=== PATIENT | male | born 1965 | race Caucasian/White ===

== ENCOUNTER → 2017-08-02 | Outpatient (CLI) | payer OTHER ==
--- NOTE | 2017-08-02 13:50 | RAD ---
Indication: Upper back pain and lump for one week. Time of exam 1337 hours. Curvature and alignment is normal. The vertebral body heights are well-maintained. No acute compression fracture is detected. Generalized degenerative disc disease is seen. The pedicles and paraspinous line are intact. Impression: Thoracic spondylosis. No acute bony abnormality is detected.
--- NOTE | 2017-08-02 14:31 | RAD ---
Indication: Lump in the posterior thorax. Sonographic interrogation of the area of palpable abnormality was performed. There is an area of hypoechogenicity in the subcutaneous tissues measuring at least 5.8 x 6.1 x 1.2 cm. No definite internal vascularity is seen. This may represent a large lipoma. No fluid collections are seen. Impression: Hypoechoic mass at the area of palpable abnormality in the posterior thorax. This may represent a large lipoma. Close clinical follow-up is recommended to confirm stability. Consideration could be given to performance of an MRI or CT for better characterization, if clinically indicated.
== END | disposition home or self-care (01) ==
LOC: DXRAD 13:23
PROVIDERS: ATTEND Family Medicine
DX: R22.2 Localized swelling, mass and lump, trunk (principal); M47.894 Other spondylosis, thoracic region
CPT/HCPCS: 72072; 76536

== ENCOUNTER 2018-01-21 16:02 | Emergency (ER) | payer OTHER ==
[2018-01-21] MEDS ORDERED: IV NORMAL SALINE 1,000ML 1,000 ML IV SCH (16:09)
[2018-01-21 16:10] VITALS: BP 174/119
--- NOTE | 2018-01-21 16:25 | PHYS DOC ---
Adult General HPI HPI 52-year-old male presents with a general ill feeling and possibly chest pain. The patient states that he just started feeling "terrible" yesterday on his way to work. He describes this as feeling jittery and having palpitations. He went home and slept for many hours, more than usual. He woke up this afternoon, he was not feeling any better. He had some chest tightness with radiation to his left arm. That seems to have resolved at this time. He still feels his palpitations. He denies fever or chills. He has had a dry cough for 3 days. He has no cardiac history. He is a smoker. He drank 10 cans of beer a days ago. He also smoked marijuana 3 days ago. He denies any other drug use at this time. He states being scared and worried. He is tearful in the room. Review of Systems Review of Systems Constitutional: Denies fever or chills [] Eyes: Denies change in visual acuity, redness, or eye pain [] HENT: Denies nasal congestion or sore throat [] Respiratory: Dry cough [] Cardiovascular: No additional information not addressed in HPI [] GI: Denies abdominal pain, nausea, vomiting, bloody stools or diarrhea [] : Denies dysuria or hematuria [] Musculoskeletal: Denies back pain or joint pain [] Integument: Denies rash or skin lesions [] Neurologic: Denies headache, focal weakness or sensory changes [] Endocrine: Denies polyuria or polydipsia [] All other systems were reviewed and found to be within normal limits, except as documented in this note. Current Medications Current Medications Current Medications Medications (Trade) Dose Ordered Sig/Morro Start Time Stop Time Status Last Admin Dose Admin Sodium Chloride 1,000 ml @ 1,000 mls/hr Q1H 01/21/18 16:09 01/21/18 17:08 UNV Physical Exam Physical Exam Constitutional: Well developed, well nourished, no acute distress, non-toxic appearance. [] HENT: Normocephalic, atraumatic, bilateral external ears normal, oropharynx moist, no oral exudates, nose normal. [] Eyes: PERRLA, EOMI, conjunctiva normal, no discharge. [] Neck: Normal range of motion, no tenderness, supple, no stridor. [] Cardiovascular:Heart rate regular rhythm, no murmur [] Lungs & Thorax: Bilateral breath sounds clear to auscultation [] Abdomen: Bowel sounds normal, soft, no tenderness, no masses, no pulsatile masses. [] Skin: Scar in his upper back from cyst removal. Well-healed. [] Back: No tenderness, no CVA tenderness. [] Extremities: No tenderness, no cyanosis, no clubbing, ROM intact, no edema. [] Neurologic: Alert and oriented X 3, normal motor function, normal sensory function, no focal deficits noted. [] Psychologic: Affect normal, judgement normal, mood normal. [] EKG EKG Normal sinus rhythm, rate 84, normal axis, no ST elevations or depressions[] Radiology/Procedures Radiology/Procedures PORTABLE CHEST 1V dated 01/21/2018 4:13 PM. Comparison: None. Clinical Indication: palpitation with short of breath today, pt shielded. Findings: Single upright portable exam performed. Heart and mediastinal contours are within normal limits. Lungs are clear without focal consolidation. Vascular interstitium within normal limits. No pleural effusion or pneumothorax. Impression: No acute radiographic abnormality. Electronically signed by: Sushil Bejarano MD (01/21/2018 4:31 PM) [facility] [place][] Course & Med Decision Making Course & Med Decision Making Pertinent Labs and Imaging studies reviewed. (See chart for details) The patient's chest x-ray is unremarkable. His labs are unremarkable. His troponin is negative. His urinalysis does not show signs of infection. I believe the patient is having some anxiety reaction which is complicating his symptoms. He seems very concerned that there is something wrong. The rest of the patient's workup is unremarkable. His UDS did show marijuana which is further complicating his emotional state. [] Dragon Disclaimer Dragon Disclaimer This electronic medical record was generated, in whole or in part, using a voice recognition dictation system. Departure Departure: Referrals: ATIYA GUARDADO MD (PCP) BOOM AUSTIN DO January 21, 2018 16:25
[2018-01-21 16:32] LABS: BASO # 0.1 x10^3/uL (0.0-0.2); BASO % 1 % (0-3); EOS # 0.1 x10^3/uL (0.0-0.7); EOS % 2 % (0-3); HEMATOCRIT 47.6 % (39.0-53.0); HEMOGLOBIN 16.3 g/dL (13.0-17.5); LYMPH # 2.2 x10^3/uL (1.0-4.8); LYMPH % 29 % (24-48); MEAN CORPUSCULAR HEMOGLOBIN 32 pg (25-35); MEAN CORPUSCULAR HGB CONC 34 g/dL (31-37); MEAN CORPUSCULAR VOLUME 92 fL (79-100); MONO # 0.4 x10^3/uL (0.0-1.1); MONO % 5 % (0-9); NEUT # 4.7 x10^3uL (1.8-7.7); NEUT % 63 % (31-73); PLATELET COUNT 165 x10^3/uL (140-400); RED BLOOD COUNT 5.18 x10^6/uL (4.30-5.70); RED CELL DISTRIBUTION WIDTH 14.1 % (11.5-14.5); WHITE BLOOD COUNT 7.5 x10^3/uL (4.0-11.0)
--- NOTE | 2018-01-21 16:34 | RAD ---
PORTABLE CHEST 1V dated 01/21/2018 4:13 PM. Comparison: None. Clinical Indication: palpitation with short of breath today, pt shielded. Findings: Single upright portable exam performed. Heart and mediastinal contours are within normal limits. Lungs are clear without focal consolidation. Vascular interstitium within normal limits. No pleural effusion or pneumothorax. Impression: No acute radiographic abnormality. Electronically signed by: Sushil Bejarano MD (01/21/2018 4:31 PM) [facility] [place]
[2018-01-21 16:47] LABS: ALBUMIN 3.8 g/dL (3.4-5.0); ALBUMIN/GLOBULIN RATIO 1.1 (1.0-1.7); CALCIUM 8.7 mg/dL (8.5-10.1); GFR 79.1; POTASSIUM 4.3 mmol/L (3.5-5.1); TOTAL BILIRUBIN 0.4 mg/dL (0.2-1.0); TOTAL PROTEIN 7.4 g/dL (6.4-8.2)
--- NOTE | 2018-01-21 18:00 | EKG ---
[address] [address] Test Date: 2018-01-21 Test Time: 16:09:10 Pat Name: MICHELLE CONTI Department: Room: Gender: M Merchandiser Retail Representative: TERESA : 1965 Requested By: BOOM AUSTIN Order Number: [id number] Reading MD: Measurements Intervals [place] Rate: 84 P: 66 NE: 138 QRS: 46 QRSD: 98 T: 99 QT: 362 QTc: 431 Interpretive Statements SINUS RHYTHM LEFT ATRIAL ABNORMALITY QRS(T) CONTOUR ABNORMALITY CONSIDER ANTEROLATERAL MYOCARDIAL DAMAGE ABNORMAL ECG RI6.01 No previous ECG available for comparison
[2018-01-21 18:08] LABS: BACTERIA,URINE 0 /HPF (0-FEW); BILIRUBIN,URINE NEG (NEG); CLARITY,URINE CLEAR; COLOR,URINE YELLOW; GLUCOSE,URINE NEG (NEG); NITRITE,URINE NEG (NEG); RBC,URINE 0 /HPF (0-2); UROBILINOGEN,URINE 0.2 mg/dL (0.2 mg/dL); WBC,URINE OCC /HPF (0-4)
[2018-01-21 18:09] LABS: BARBITURATES NEG (NEG); BENZODIAZEPINES NEG (NEG); CANNABINOIDS POS (NEG); COCAINE NEG (NEG); METHADONE NEG (NEG); OPIATES NEG (NEG); PHENCYCLIDINE NEG (NEG)
[2018-01-21 18:21] LABS: AMPHETAMINE/METHAMPHETAMINE NEG (NEG)
== END 2018-01-21 18:46 | disposition home or self-care (01) ==
LOC: ER 16:02
DX: F41.9 Anxiety disorder, unspecified (principal); F12.90 Cannabis use, unspecified, uncomplicated
CPT/HCPCS: 36415; 71045; 80053; 80307; 81001; 84484; 85025; 93005; 99285-25; G0479; J7030

== ENCOUNTER 2020-05-03 08:43 | Observation (INO) | payer OTHER ==
[~2020-05-03] VITALS: Ht 170.2 cm; Wt 84.3 kg
--- NOTE | 2020-05-03 08:51 | PHYS DOC ---
Past History Past Medical History: Hypertension Past Surgical History: Other Alcohol Use: Occasionally Drug Use: Marijuana General Adult HPI: HPI: 54 yo M PMH HTN (noncompliant with blood pressure medications for the past year due to adverse effects) and tobacco dependence, presents the ED with complaints of throbbing midsternal chest pain that radiates from the right side of his chest to his back for the past week. 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 Patient also complains of left lower anterior rib pain after patient fell forward yesterday while slipping outside mowing his lawn (no head injury or LOC). States his pain is worsened with deep respirations. Denies any history of cocaine or drug use. Sister had heart attack at the age of 55. No known family history of DVT, PE, sudden under the age of 50, aortic disease or arrhythmias. Patient with no prior cardiac work-up or disease. Patient was referred by PCP office Dr. Hooks who gave patient aspirin and 1 sublingual nitro. Patient reports nitro relieved his symptoms but did not resolve the chest pain. States he was unable to go to work yesterday due to his lower anterior rib pain and is needing a work note. PSH inguinal hernia [place] approximately 40 years ago. No recent hospitalizations, trauma or surgeries. Takes no daily medications. No known drug allergies. No recent upper resp iratory infection. ROS: Denies associated fever, chills, cough, sore throat, dyspnea, hemoptysis, leg swelling, nausea, vomiting, diarrhea, abdominal pain, diaphoresis, headache, neck stiffness, sensory or motor deficits. Review of Systems: Review of Systems: Constitutional: Denies fever or chills Eyes: Denies change in visual acuity HENT: Denies nasal congestion or sore throat Respiratory: Denies cough or shortness of breath Cardiovascular: Denies edema GI: Denies abdominal pain, nausea, vomiting, bloody stools or diarrhea : Denies dysuria Musculoskeletal: Denies joint pain Integument: Denies rash Neurologic: Denies headache, focal weakness or sensory changes Endocrine: Denies polyuria or polydipsia Lymphatic: Denies swollen glands Psychiatric: Denies depression or anxiety Heart Score: HEART Score for Chest Pain: HEART Score for Chest Pain Response (Comments) Value History Moderately Suspicious 1 ECG Nonspecific Repolarizatio 1 Age >45 - < 65 1 Risk Factors >3 Risk Factors or Hx CAD 2 Troponin < Normal Limit 0 Total 5 Risk Factors: Risk Factors: DM, Current or recent (<one month) smoker, HTN, HLP, family history of CAD, obesity. Risk Scores: Score 0 - 3: 2.5% MACE over next 6 weeks - Discharge Home Score 4 - 6: 20.3% MACE over next 6 weeks - Admit for Clinical Observation Score 7 - 10: 72.7% MACE over next 6 weeks - Early Invasive Strategies Allergies: Allergies: Allergies Coded Allergies Type Severity Reaction Last Updated Verified No Known Drug Allergies 01/21/18 No Physical Exam: PE: Constitutional: Well developed, well nourished, no acute distress, non-toxic appearance, hypertensive HENT: Normocephalic, atraumatic, bilateral external ears normal, oropharynx moist, no oral exudates, nose normal. [] Eyes: PERRLA, EOMI, conjunctiva normal, no discharge. [] Neck: Normal range of motion, no tenderness, supple, no stridor. [] Cardiovascular:Heart rate regular rhythm, no murmur, left lower thoracic ribs 7- 10 anterior w/ttp, no bruising Lungs & Thorax: Bilateral breath sounds clear to auscultation [] Abdomen: Bowel sounds normal, soft, no tenderness (no epigastric, RUQ/LUQ), no masses, no pulsatile masses. [] Skin: Warm, dry, no erythema, no rash. [] Back: No tenderness, no CVA tenderness. [] Extremities: No tenderness, no cyanosis, no clubbing, ROM intact, no edema. [] Neurologic: Alert and oriented X 3, normal motor function, normal sensory function, no focal deficits noted. [] Psychologic: Affect normal, judgement normal, mood normal. [] EKG: EKG: [] Sinus rhythm at 62 bpm, no axis deviation, normal intervals, T wave inversion 1, aVL, V5 and V6, nonpathologic Q waves in lead III, no ST elevations or ST depressions T wave inversions present in 01/2018 ekg, much more pronounced TWIs on ed ekg and Dr. Sánchez' ekg, 2018 ekg w/III and aVF q waves Radiology/Procedures: Radiology/Procedures: [] IMAGING REPORT Signed PATIENT: MICHELLE CONTI ACCOUNT: [id number] : 1965 LOCATION: ER AGE: 54 SEX: M EXAM STATUS: REG ER ORD. PHYSICIAN: RAY FAJARDO DO REASON: none PROCEDURE: PORTABLE CHEST 1V PORTABLE CHEST 1V 05/03/2020 8:47 AM INDICATION: Chest pain COMPARISON: None available TECHNIQUE: Portable frontal view of the chest is provided. FINDINGS: The cardiomediastinal silhouette is within normal limits. Lungs are clear. There are no significant pleural effusions. There is no pulmonary vascular congestion. No pneumothorax. No suspicious osseous abnormality. IMPRESSION: There is no acute cardiopulmonary process. Electronically signed by: Goldy Kincaid MD (05/03/2020 9:07 AM) [facility] DICTATED AND SIGNED BY: GOLDY KINCAID MD DATE: 05/03/20906 CC: ATIYA GUARDADO MD; RAY FAJARDO DO ~ IMAGING REPORT Signed PATIENT: MICHELLE CONTI ACCOUNT: [id number] : 1965 LOCATION: ER AGE: 54 SEX: M EXAM STATUS: REG ER ORD. PHYSICIAN: RAY FAJARDO DO REASON: chest pain to back, left lower rib pain, r/o dissection PROCEDURE: CT ANGIOGRAPHY CHEST CT ANGIOGRAPHY CHEST History: Chest pain radiating to back. Left lower rib pain. Technique: CT of the chest was performed with intravenous contrast. PE protocol. Maximum intensity projection coronal and sagittal reconstructions were performed. Exposure: One or more of the following individualized dose reduction techniques were utilized for this examination: 1. Automated exposure control 2. Adjustment of the mA and/or kV according to patient size 3. Use of iterative reconstruction technique. Comparison: None Findings: Chest: No pulmonary embolism. No aortic aneurysm. Poor contrast timing is noted within the aorta. No definite evidence of dissection. Mild atheromatous plaque within the aortic arch. No pathologic lymphadenopathy. No consolidation or pleural effusion. No pneumothorax. Linear lingular atelectasis. 3 mm right middle lobe pulmonary nodule (series 4 image 73). 7 mm right lower lobe nodule along the fissure (image 74). Upper abdomen: The imaged upper abdomen is unremarkable. Bones: No pathologic osseous lesions. Impression: 1. No definite acute thoracic pathology. Poor contrast timing within the aorta degrades evaluation. No definite aortic dissection. 2. Right-sided pulmonary nodules. Recommend comparison with prior imaging studies. If prior imaging studies are not available, recommend 6-12 month follow-up. Electronically signed by: Sujit Guzman DO (05/03/2020 9:49 AM) [facility] DICTATED AND SIGNED BY: SUJIT GUZMAN DO DATE: 05/03/20 0949 CC: ATIYA GUARDADO MD; RAY FAJARDO DO ~ Impressions: Course & Med Decision Making: Course & Med Decision Making Pertinent Labs and Imaging studies reviewed. (See chart for details) Concern for symptomatic hypertension with chest pain (x 6 days) and lateral ischemia on ekg, alson seen on 2018 ekg. Pt also c/o left anterior rib pain.CBC, cmp wnl, normal troponin, ck. D-dimer 0.48. Chest x-ray with no acute car diopulmonary process. CTA chest with poor bolus timing, no pe, no definite aortic dissection, no aortic aneurysm, no osseous lesions. Pts' pain improved with nitro. Will admit for serial trops and cards consultation. Dr. Hooks accepts admission. BP at time of admission 151/92. Pt stable and agrees with plan. I have spoken with the patient and/or caregivers. I have explained the patient's condition, diagnosis and treatment plan based on the information available to me at this time. I have answered the patient's and/or caregivers questions and answered any concerns. The patient and/or caregivers have as good an understanding of the patient's diagnosis, condition and treatment plan as can be expected at this point. The patient has been stabilized within the capability of the emergency department. The patient will be transported for further care and management or will be moved to an observation or inpatient service. I have communicated with the staff or medical practitioner taking over this patient's care. [place] Disclaimer: Nelsy Disclaimer: This electronic medical record was generated, in whole or in part, using a voice recognition dictation system. Departure Departure: Impression: Primary Impression: HTN, goal: symptom mgmt only Additional Impressions: Chest pain T wave inversion in electrocardiogram Rib pain on left side Disposition: ADMITTED INPATIENT Admitting Physician: Atiya Guardado Condition: STABLE Referrals: ATIYA GUARDADO MD (PCP) Justification of Admission: Justification of Admission: Justification of Admission Dx: Yes Angina: New-Onset RAY FAJARDO DO May 03, 2020 08:51
--- NOTE | 2020-05-03 08:52 | EKG ---
[address] [address] Test Date: 2020-05-03 Test Time: 08:46:22 Pat Name: MICHELLE CONTI Department: Room: Gender: M Physician Internist: : 1965 Requested By: RAY FAJARDO Order Number: [id number] Reading MD: Measurements Intervals [place] Rate: 62 P: 75 ND: 156 QRS: 55 QRSD: 90 T: 113 QT: 410 QTc: 418 Interpretive Statements SINUS RHYTHM LVH WITH REPOLARIZATION ABNORMALITY ABNORMAL ECG RI6.02 No previous ECG available for comparison
[2020-05-03] MEDS ORDERED: ONDANSETRON PF 4 MG/2 ML VIAL. IVP ONE (09:00)
[2020-05-03] MEDS ORDERED: hydrALAZINE 20 MG/ML VIAL. IV ONE (09:00)
[2020-05-03] MEDS ORDERED: MORPHINE SULFATE 4 MG/ML DISP.SYRIN. IV ONE (09:00)
[2020-05-03 09:06] LABS: BASO # 0.1 x10^3/uL (0.0-0.2); BASO % 1 % (0-3); EOS # 0.2 x10^3/uL (0.0-0.7); EOS % 3 % (0-3); HEMATOCRIT 46.9 % (39.0-53.0); HEMOGLOBIN 15.9 g/dL (13.0-17.5); LYMPH # 2.6 x10^3/uL (1.0-4.8); LYMPH % 33 % (24-48); MEAN CORPUSCULAR HEMOGLOBIN 33 pg (25-35); MEAN CORPUSCULAR HGB CONC 34 g/dL (31-37); MEAN CORPUSCULAR VOLUME 97 fL (79-100); MONO # 0.7 x10^3/uL (0.0-1.1); MONO % 9 % (0-9); NEUT # 4.2 x10^3uL (1.8-7.7); NEUT % 54 % (31-73); PLATELET COUNT 140 x10^3/uL (140-400); RED BLOOD COUNT 4.85 x10^6/uL (4.30-5.70); RED CELL DISTRIBUTION WIDTH 14.1 % (11.5-14.5); WHITE BLOOD COUNT 7.9 x10^3/uL (4.0-11.0)
--- NOTE | 2020-05-03 09:10 | RAD ---
PORTABLE CHEST 1V 05/03/2020 8:47 AM INDICATION: Chest pain COMPARISON: None available TECHNIQUE: Portable frontal view of the chest is provided. FINDINGS: The cardiomediastinal silhouette is within normal limits. Lungs are clear. There are no significant pleural effusions. There is no pulmonary vascular congestion. No pneumothorax. No suspicious osseous abnormality. IMPRESSION: There is no acute cardiopulmonary process. Electronically signed by: Shonda Salcido MD (05/03/2020 9:07 AM) [facility]
[2020-05-03 09:12] LABS: CALCIUM 9.1 mg/dL (8.5-10.1); CREATININE 1.1 mg/dL (0.7-1.3); GFR 70.3; POTASSIUM 4.1 mmol/L (3.5-5.1)
[2020-05-03] MEDS ORDERED: NITROGLYCERIN SUBLINGUAL 0.4 MG BOTTLE OF 25. SL PRN (09:15)
[2020-05-03] MEDS ORDERED: IOHEXOL 350 MG/ML 100 ML VIAL. IV ONE (09:15)
[2020-05-03 09:24] LABS: ALBUMIN 3.8 g/dL (3.4-5.0); TOTAL BILIRUBIN 0.3 mg/dL (0.2-1.0); TOTAL PROTEIN 7.7 g/dL (6.4-8.2)
--- NOTE | 2020-05-03 09:52 | RAD ---
CT ANGIOGRAPHY CHEST History: Chest pain radiating to back. Left lower rib pain. Technique: CT of the chest was performed with intravenous contrast. PE protocol. Maximum intensity projection coronal and sagittal reconstructions were performed. Exposure: One or more of the following individualized dose reduction techniques were utilized for this examination: 1. Automated exposure control 2. Adjustment of the mA and/or kV according to patient size 3. Use of iterative reconstruction technique. Comparison: None Findings: Chest: No pulmonary embolism. No aortic aneurysm. Poor contrast timing is noted within the aorta. No definite evidence of dissection. Mild atheromatous plaque within the aortic arch. No pathologic lymphadenopathy. No consolidation or pleural effusion. No pneumothorax. Linear lingular atelectasis. 3 mm right middle lobe pulmonary nodule (series 4 image 73). 7 mm right lower lobe nodule along the fissure (image 74). Upper abdomen: The imaged upper abdomen is unremarkable. Bones: No pathologic osseous lesions. Impression: 1. No definite acute thoracic pathology. Poor contrast timing within the aorta degrades evaluation. No definite aortic dissection. 2. Right-sided pulmonary nodules. Recommend comparison with prior imaging studies. If prior imaging studies are not available, recommend 6-12 month follow-up. Electronically signed by: Sujit Guzman DO (05/03/2020 9:49 AM) [facility]
[2020-05-03] MEDS ORDERED: ONDANSETRON PF 4 MG/2 ML VIAL. IVP PRN (10:30)
[2020-05-03] MEDS ORDERED: MORPHINE SULFATE 2 MG/ML DISP.SYRIN. IVP PRN (10:30)
--- NOTE | 2020-05-03 11:10 | NUR ---
PATIENT ARRIVED TO UNIT VIA EMS. PATIENT IS STABLE AT TIME OF ADMISSION. VS OBTAINED AND PATIENT IS ORIENTED TO UNIT AND PROCEDURES. PATIENTS IS OFFERED FOOD AND DRINK. PATIENT IS RESTING AT THIS TIME. WILL CONTINUE TO MONITOR.
[2020-05-03 11:51] VITALS: BP 153/88
[2020-05-03 11:54] LABS: AMPHETAMINE/METHAMPHETAMINE NEG (NEG); BARBITURATES NEG (NEG); BENZODIAZEPINES NEG (NEG); CANNABINOIDS POS (NEG); COCAINE NEG (NEG); METHADONE NEG (NEG); OPIATES POS (NEG); PHENCYCLIDINE NEG (NEG)
[2020-05-03 12:14] LABS: BACTERIA,URINE 0 /HPF (0-FEW); BILIRUBIN,URINE NEG (NEG); CLARITY,URINE CLEAR; COLOR,URINE YELLOW; GLUCOSE,URINE NEG (NEG); NITRITE,URINE NEG (NEG); RBC,URINE RARE /HPF (0-2); SQUAMOUS EPITHELIAL CELL,UR OCC /LPF; UROBILINOGEN,URINE 0.2 mg/dL (0.2 mg/dL); WBC,URINE OCC /HPF (0-4)
[2020-05-03] MEDS ORDERED: cloNIDine HCL 0.1 MG TABLET PO PRN (13:30)
[2020-05-03] MEDS ORDERED: MAG HYDROX/AL HYDROX/SIMETH 30 ML ORAL.SUSP PO PRN (13:30)
[2020-05-03] MEDS ORDERED: IBUPROFEN 600 MG TABLET. PO PRN (13:30)
[2020-05-03] MEDS ORDERED: ZOLPIDEM 5 MG TABLET. PO PRN (13:30)
--- NOTE | 2020-05-03 13:38 | HP ---
ADMIT DATE: 05/03/2020 HISTORY OF PRESENT ILLNESS: A 54-year-old gentleman with a past history of noncompliance, hypertension and also tobacco dependence, came in with throbbing midsternal chest pain that radiates to the right side of his chest, to his back for the past week. The patient states the pain has been becoming worse. He works in sanitation. The patient complains of left lower rib pain as well, but apparently he had fallen forward yesterday while slipping outside, mowing his lawn. No head injury, no loss of consciousness, hit that left side. Pain gets worse with deep inspiration. Denies any history of drug abuse. FAMILY HISTORY: Positive for sister with heart disease. PAST MEDICAL HISTORY: Hypertension, respiratory disorders as noted, current smoker. ALLERGIES: No known drug allergies. SOCIAL HISTORY: The patient is a full code. Has about a 40-50 pack year history of smoking. Occasional alcohol use. No hard drug use. REVIEW OF SYSTEMS: Chest discomfort is noted on the right side and left lower ribcage. The patient denies any headaches, visual changes, blurred vision, double vision. Denies any melena, hematochezia, hematemesis. Neurologically, the patient was alert and oriented x 3 there. PHYSICAL EXAMINATION: GENERAL: This is a white male, moderate amount of distress, just not feeling very well and complaining of the chest pain. He did have a nitroglycerin in the office and apparently, it did help him with his chest pain. VITAL SIGNS: Otherwise, blood pressure was initially very elevated to 195/108, respiratory rate 18, pulse 65, afebrile. HEENT: The patient's head was atraumatic, normocephalic. Eyes: PERRLA without jaundice. The mouth and throat were normal. NECK: Supple, no JVD, carotid bruits nor thyromegaly. LUNGS: The patient's lungs were diminished throughout, poor movement of air. CARDIOVASCULAR: Regular sinus rhythm, tachycardic. ABDOMEN: Soft, nontender. Some tenderness to the left lower ribcage. The patient has no rebounding, no hepatosplenomegaly noted of the abdomen. GENITOURINARY: Normal. EXTREMITIES: Without clubbing, cyanosis, nor edema. NEUROLOGIC: The patient is alert and oriented x 3 there. LABORATORY DATA: UA was unremarkable. Chemistries so far unremarkable. Sugar 106. BUN and creatinine, cardiac enzymes negative. Coag 0.48. Positive for opiates as well as THC in the urine drug toxicity study. White count was normal, hemoglobin and platelets were normal. The patient had images, chest x-ray was read out as no acute findings and he also had a CTA because of the chest pain and the borderline D-dimer showed multiple right-sided pulmonary nodules and follow up in 6-12 months for that. Otherwise, hypertensive urgency, chest pain, noncompliance. The patient will be admitted, rule out OH protocol, Cardiology consultation and make further assessment on him as indicated. ATIYA GUARDADO MD DR: TAMARA/jordon JOB#: [id number] / [id number]
[2020-05-03 15:24] VITALS: BP 148/81
[2020-05-03] MEDS ORDERED: HYDROcodone/APAP 5/325MG 1 TAB TABLET PO PRN (17:00)
[2020-05-03 20:10] VITALS: BP 148/87
[2020-05-03 22:44] VITALS: BP 163/86
[2020-05-04 05:35] VITALS: BP 164/95
--- NOTE | 2020-05-04 07:59 | NUR ---
nursing note Patient calm and cooperative. Patient given fresh ice water. Patient eager to go home. Patient understands that he has a cardiology consult before he may leave.
[2020-05-04 11:03] VITALS: BP 162/90
[2020-05-04] MEDS ORDERED: AMLO10TA4 PO (11:23)
[2020-05-04] MEDS ORDERED: CLON0.1T PO (11:23)
[2020-05-04 11:30] VITALS: BP 162/90
[2020-05-04] MEDS ORDERED: amLODIPine BESYLATE 10 MG TABLET PO SCH (11:30)
--- NOTE | 2020-05-04 11:41 | NUR ---
Patient is discharged home for self care. Patient left stable. Patient ambulated off unit. Patient IV removed .
--- NOTE | 2020-05-04 12:53 | DS ---
DATE OF DISCHARGE: 05/04/2020 HOSPITAL COURSE: A 54-year-old male came in with severe right-sided chest pain. The patient's cardiac enzymes were negative. The patient made good progress during the rest of hospitalization, said he was feeling much better. He also had hypertensive urgency, will be started on Norvasc and clonidine. Last blood pressure 162/90, respiratory rate 20, pulse 60, afebrile. The patient is alert and oriented. Lungs diminished, but clear. Stable. The patient's CBC was unremarkable. Cardiac enzymes negative. Sodium and potassium 139, 4.1, 17, 1.1. Blood sugar 106. Otherwise, urine was negative. CTA was negative except for some right-sided pulmonary nodules. Recommend prior imaging or follow up in 6-[address] scan. IMPRESSION: Chest pain, unknown etiology, hypertensive urgency, high risk for coronary artery disease. We will continue to monitor his blood pressure as an outpatient. He is to follow up in 7-10 days or sooner as needed. Work release given to him. Heart healthy diet. ATIYA GUARDADO MD DR: TAMARA/jordon JOB#: [id number] / [id number]
[2020-05-04] MEDS ORDERED: cloNIDine HCL 0.1 MG TABLET PO SCH (21:00)
== END 2020-05-04 12:05 | disposition home or self-care (01) ==
LOC: ER 08:43 → 1 SOUTH 10:15 → INTOOBSV 10:15
PROVIDERS: ADMIT Family Medicine; ATTEND Family Medicine
DX: R07.2 Precordial pain (principal); R91.1 Solitary pulmonary nodule; I16.0 Hypertensive urgency; I10 Essential (primary) hypertension; R94.31 Abnormal electrocardiogram [ECG] [EKG]; R07.81 Pleurodynia; F17.200 Nicotine dependence, unspecified, uncomplicated; Z91.14 Patient's other noncompliance with medication regimen
CPT/HCPCS: 36415; 71045; 71275; 80053; 80307; 81001; 82550; 83690; 83735; 83880; 84484; 85025; 85379; 85610; 85730; 93005; 96374; 96375; 99285; G0378; J0360; J2270; J2405; Q9967; G0379